=== PATIENT | female | born 1995 | race Two or more races ===

== ENCOUNTER 2019-10-21 00:02 | Emergency (ER) | payer OTHER ==
[~2019-10-21] VITALS: Ht 160 cm; Wt 69.9 kg
[2019-10-21] MEDS ORDERED: BACTRIM DS TAB1 EACH PO (04:46)
== END 2019-10-21 04:56 | disposition home or self-care (01) ==
LOC: ER 00:02
DX: N39.0 Urinary tract infection, site not specified (principal)